=== PATIENT | male | born 1940 | race Caucasian/White ===

== ENCOUNTER 2017-01-15 11:13 | Day surgery (SDCO) | payer MEDICARE, OTHER ==
[~2017-01-15] VITALS: Ht 175.3 cm; Wt 98.0 kg
[~2017-01-15 11:13] MED LIST: ALDACTONE25 MG PO; ASPIR-LOW81 MG PO; ASPIRIN325 MG PO; ATORVASTATIN CA80 MG PO; AUGMENTIN875 MG PO; BREO ELLIPTA 11 EACH INH; CLARITIN10 MG PO; CLEOCIN300 MG PO; COREG12.5 MG PO; COREG25 MG PO; COZAAR 100MG T100 MG PO; DEMADEX20 MG PO; DULERA 100 MCG8.8 GM INH; FLAGYL500 MG PO; FLOMAX 0.4 MG0.4 MG PO; FLOMAX0.4 MG PO; FLONASE ALLER15.8 ML; FLONASE NASAL S16 GM; FLORASTOR250 MG PO; GABAPENTIN300 MG PO; HYDRALAZINE25 MG PO; HYTRIN1 MG PO; JANUVIA50 MG PO; LASIX40 MG PO; LAXATIVE OF CHOICE; LEVAQUIN500 MG PO; LIPITOR80 MG PO; MELOXICAM15 MG PO; MIRAPEX0.5 MG PO; MYSOLINE50 MG PO; NITROQUIK SL0.4 MG PO; NORVASC5 MG PO; OMEPRAZOLE20 MG PO; OXY-IR 5MG5 MG PO; OXYCODONE HCL15 MG PO; OXYCODONE HCL30 MG PO; PRAMIPEXOLE DI0.5 MG PO; PREDNISONE 10MG10 MG PO; PREVACID30 MG PO; REMERON15 MG PO; SPIRIVA 18MCG18 MCG PO; SPIRIVA18 MCG INH; SPIRONOLACTONE25 M1 PO; VENTOLIN (2.5 MG/3 M INH; VENTOLIN (2.5 MG/3 M NEB; ZITHROMAX500 MG PO; ZOLOFT100 MG PO
[2017-01-15 11:59] LABS: BASOPHIL 0.2 % (0-2); EOSINOPHIL 3.1 % (0-7); HCT 31.7 % (42.0-52.0); HGB 10.3 g/dl (13.2-18.0); LYMPHOCYTE 12.6 % (15-48); MCHC 32.5 g/dL (32.0-36.0); MCV 92.4 fL (78.0-100.0); MONOCYTE 9.9 % (0-12); MPV 9.9 fL (6.0-9.5); NEUTROPHIL 74.2 % (41-80); PLT 191 K/uL (150-400); RBC 3.43 M/uL (4.70-6.00); RDW 13.8 % (11.5-14.0)
[2017-01-15 12:07] LABS: INR 1.24 (0.9-1.2); PROTHROMBIN TIME 15.2 SECONDS (11.7-14.0)
[2017-01-15 12:17] LABS: LACTIC ACID 0.9 mmol/L (0.5-2.2)
[2017-01-15 12:18] LABS: BILIRUBIN - TOTAL 0.9 mg/dL (0.1-1.0); CREATININE 1.9 mg/dL (0.7-1.2); GLOBULIN (CALCULATION) 3.9 g/dL (2.2-4.2); POTASSIUM 4.5 mmol/L (3.5-5.1); TOTAL PROTEIN 7.9 g/dL (6.4-8.3)
[2017-01-15 14:16] LABS: BILIRUBIN NEGATIVE (NEGATIVE); BLOOD NEGATIVE Ery/uL (NEGATIVE); CLARITY CLEAR (CLEAR); COLOR YELLOW (YELLOW); GLUCOSE (U) NORMAL (NORMAL); KETONE (U) NEGATIVE (NEGATIVE); LEUKOCYTES NEGATIVE Leu/uL (NEGATIVE); NITRITE NEGATIVE (NEGATIVE); PROTEIN NEGATIVE (NEGATIVE); UROBILINOGEN 0.2 mg/dL (0.2-1.0)
[2017-01-16 05:39] LABS: HCT 31.2 % (42.0-52.0); HGB 10.3 g/dl (13.2-18.0); MCH 29.9 pg (25.0-31.0); MCV 90.7 fL (78.0-100.0); MPV 10.1 fL (6.0-9.5); RBC 3.44 M/uL (4.70-6.00); RDW 13.4 % (11.5-14.0); WBC 11.1 K/uL (4.0-10.5)
[2017-01-16 05:58] LABS: CREATININE 1.3 mg/dL (0.7-1.2); POTASSIUM 4.5 mmol/L (3.5-5.1)
[2017-01-17 06:11] LABS: HGB 10.5 g/dl (13.2-18.0); MCH 29.9 pg (25.0-31.0); MCHC 32.8 g/dL (32.0-36.0); MCV 91.2 fL (78.0-100.0); MPV 9.9 fL (6.0-9.5); RBC 3.51 M/uL (4.70-6.00); RDW 13.7 % (11.5-14.0)
[2017-01-17 06:30] LABS: POTASSIUM 4.7 mmol/L (3.5-5.1)
== END 2017-01-17 17:17 | disposition home health service (06) ==
LOC: FER 11:13 → FMS 14:19 → FTCU 14:19 → FMS 01-16 14:46
PROVIDERS: Emergency Medicine; ADMIT Internal Medicine
DX: N17.9 Acute kidney failure, unspecified (principal); E86.0 Dehydration; I11.0 Hypertensive heart disease with heart failure; I69.998 Other sequelae following unspecified cerebrovascular disease; I50.22 Chronic systolic (congestive) heart failure; H54.8 Legal blindness, as defined in USA; E78.5 Hyperlipidemia, unspecified; E11.9 Type 2 diabetes mellitus without complications; I25.10 Atherosclerotic heart disease of native coronary artery without angina pectoris; K21.9 Gastro-esophageal reflux disease without esophagitis; M54.5 Low back pain; M19.90 Unspecified osteoarthritis, unspecified site; J30.9 Allergic rhinitis, unspecified; Z85.46 Personal history of malignant neoplasm of prostate; Z95.1 Presence of aortocoronary bypass graft; Z95.5 Presence of coronary angioplasty implant and graft; Z83.3 Family history of diabetes mellitus; Z82.49 Family history of ischemic heart disease and other diseases of the circulatory system; Z79.891 Long term (current) use of opiate analgesic; Z79.899 Other long term (current) drug therapy; Z98.890 Other specified postprocedural states
CPT/HCPCS: 36415; 36600; 71010; 71250; 73630; 80048; 80053; 81003; 82803; 82962; 83605; 83880; 84484; 85025; 85610; 85730; 87804; 87899; 93005; 94010; 94640; 97116; 97163; 97167; 97530; 97535; C9113; G0378; J0456; J1644; J1940; J2930

== ENCOUNTER 2017-02-19 20:16 | Day surgery (SDCO) | payer MEDICARE, OTHER ==
[~2017-02-19] VITALS: Ht 175.3 cm; Wt 94.5 kg
[2017-02-19 20:41] LABS: BASOPHIL 0.4 % (0-2); EOSINOPHIL 4.7 % (0-7); HGB 11.1 g/dl (13.2-18.0); MCH 29.8 pg (25.0-31.0); MCHC 33.6 g/dL (32.0-36.0); MCV 88.5 fL (78.0-100.0); MONOCYTE 8.2 % (0-12); NEUTROPHIL 65.7 % (41-80); PLT 200 K/uL (150-400); RBC 3.73 M/uL (4.70-6.00); RDW 13.4 % (11.5-14.0); WBC 10.5 K/uL (4.0-10.5)
[2017-02-19 20:51] LABS: INR 1.3 (0.9-1.2); PROTHROMBIN TIME 15.7 SECONDS (11.7-14.0); PTT 32.7 SECONDS (23.2-31.4)
[2017-02-19 21:01] LABS: CKMB 2.87 ng/mL (0.97-4.94); TROPONIN T 0.024 ng/mL
[2017-02-19 21:02] LABS: ALBUMIN 3.9 g/dL (3.4-4.8); BILIRUBIN - TOTAL 0.5 mg/dL (0.1-1.0); CREATININE 1.5 mg/dL (0.7-1.2); GLOBULIN (CALCULATION) 4.3 g/dL (2.2-4.2); MAGNESIUM 1.58 mg/dL (1.40-2.10); POTASSIUM 4.2 mmol/L (3.5-5.1); TOTAL PROTEIN 8.2 g/dL (6.4-8.3)
[2017-02-20 07:00] LABS: CKMB 2.71 ng/mL (0.97-4.94); TROPONIN T 0.024 ng/mL
[2017-02-20 07:08] LABS: CREATININE 1.3 mg/dL (0.7-1.2); POTASSIUM 4.2 mmol/L (3.5-5.1)
[2017-02-20 11:09] LABS: CKMB 3.02 ng/mL (0.97-4.94); TROPONIN T 0.021 ng/mL
[2017-02-20 11:11] LABS: MAGNESIUM 2.04 mg/dL (1.40-2.10)
== END 2017-02-20 13:05 | disposition home or self-care (01) ==
LOC: FER 20:16 → FTCU 02-20 01:25
PROVIDERS: Allergy & Immunology; Emergency Medicine Emergency Medical Services; ADMIT Internal Medicine Cardiovascular Disease
DX: R07.9 Chest pain, unspecified (principal); I25.10 Atherosclerotic heart disease of native coronary artery without angina pectoris; Z95.1 Presence of aortocoronary bypass graft; Z95.5 Presence of coronary angioplasty implant and graft; I10 Essential (primary) hypertension; E11.9 Type 2 diabetes mellitus without complications; E78.5 Hyperlipidemia, unspecified; H54.8 Legal blindness, as defined in USA; I69.398 Other sequelae of cerebral infarction; J44.9 Chronic obstructive pulmonary disease, unspecified; Z85.46 Personal history of malignant neoplasm of prostate; Z87.891 Personal history of nicotine dependence; Z79.82 Long term (current) use of aspirin
CPT/HCPCS: 36415; 71010; 71250; 80048; 80053; 80061; 82550; 82553; 83735; 83874; 83880; 84484; 85025; 85379; 85610; 85730; 93005; 94640; 96372; G0378; J2270; J2405; J3475